=== PATIENT | female | born 1995 ===

== ENCOUNTER 2018-05-15 06:40 | Emergency (ER) | payer OTHER ==
[2018-05-15 07:23] VITALS: BP 119/77; PULSE 58; RESP 16; TEMP 98.3; O2SAT 99
--- NOTE | 2018-05-15 08:12 | ED PDOC ---
HPI: Female Pain Time Seen by Provider: 05/15/18 08:00 Chief Complaint (Nursing): Female Genitourinary Chief Complaint (Provider): Female Genitourinary History Per: Patient History/Exam Limitations: no limitations Onset/Duration Of Symptoms: Days (1) Associated Symptoms: Urinary Symptoms (Dysuria, hematuria and frequency). denies: Fever, Chills, Nausea, Vomiting, Back Pain Additional Complaint(s): 23 years old female presents to the ED for evaluation of dysuria, hematuria and frequency of urination associated with lower abdominal pain onset yesterday. Patient denies any fever, back pain, chills, nausea or vomiting. PMD: Cannot recall name Past Medical History Reviewed: Historical Data, Nursing Documentation, Vital Signs Vital Signs: Last Vital Signs Temp 98.3 F 05/15/18 07:22 Pulse 58 L 05/15/18 07:22 Resp 16 05/15/18 07:22 BP 119/77 05/15/18 07:22 Pulse Ox 99 05/15/18 07:22 - Medical History PMH: No Chronic Diseases - Surgical History Surgical History: No Surg Hx - Family History Family History: States: Unknown Family Hx - Home Medications Home Medications: Ambulatory Orders Medication Instructions Recorded Naproxen [Naprosyn] 500 mg PO Q12H #20 tab 05/15/18 Sulfamethoxazole/Trimethoprim 1 tab PO BID #20 tab 05/15/18 [Bactrim DS 800 mg-160 mg] - Allergies Allergies/Adverse Reactions: Allergies Allergy/AdvReac Type Severity Reaction Status Date / Time No Known Allergies Allergy Verified 05/15/18 07:22 Review of Systems ROS Statement: Except As Marked, All Systems Reviewed And Found Negative Constitutional: Negative for: Fever, Chills Gastrointestinal: Positive for: Abdominal Pain (lower). Negative for: Nausea, Vomiting Genitourinary Female: Positive for: Dysuria, Frequency, Hematuria Musculoskeletal: Negative for: Back Pain Physical Exam - Reviewed Nursing Documentation Reviewed: Yes Vital Signs Reviewed: Yes - Physical Exam Appears: Positive for: Non-toxic, No Acute Distress Head Exam: Positive for: ATRAUMATIC, NORMOCEPHALIC Gastrointestinal/Abdominal: Positive for: Soft, Tenderness (mild to lower abdomen bilaterally) Back: Positive for: Normal Inspection. Negative for: L CVA Tenderness, R CVA Tenderness Extremity: Positive for: Normal ROM. Negative for: Tenderness Neurologic/Psych: Positive for: Alert, Oriented (x3) - ECG O2 Sat by Pulse Oximetry: 99 (RA) Pulse Ox Interpretation: Normal Medical Decision Making Medical Decision Making: Time: 804 Initial Plan: --Urine --Urine dipstick --Transvaginal US 0940 Tansvaginal US FINDINGS: UTERUS: Measures 8 x 3 x 5.1 cm. Normal in size and appearance. No fibroid or other mass lesion seen. ENDOMETRIUM: Measures 12 mm in diameter. No focal endometrial complex mass is noted. CERVIX: No cervical abnormality identified. RIGHT OVARY: Measures 3.5 x 2.2 x 3.1 cm. No solid mass. Normal flow. A few small follicles are seen. LEFT OVARY: Measures 2.5 x 1.7 x 2.5 cm. No solid mass. Normal flow. A few small follicles are seen. FREE FLUID: Mild right adnexal free fluid is seen adjacent to the right ovary. This is nonspecific but may reflect recently ruptured follicular cyst. OTHER FINDINGS: None. IMPRESSION: Small amount of free fluid in the right adnexa adjacent to the right ovary which may reflect recently ruptured ovarian follicle. No appreciable endometrial complex mass or cervical mass. ----- Scribe Attestation: Documented by Deanne Starkey, acting as a scribe for Vidal Bryant MD. Provider Scribe Attestation: All medical record entries made by the Scribe were at my direction and personally dictated by me. I have reviewed the chart and agree that the record accurately reflects my personal performance of the history, physical exam, medical decision making, and the department course for this patient. I have also personally directed, reviewed, and agree with the discharge instructions and disposition. Disposition - Clinical Impression Clinical Impression: Urinary tract infection - Patient ED Disposition Is Patient to be Admitted: No Counseled Patient/Family Regarding: Studies Performed, Diagnosis, Need For Followup, Rx Given - Disposition Referrals: [facility] [Outside] Disposition: Routine/Home Disposition Time: 10:31 Condition: FAIR Prescriptions: Naproxen [Naprosyn] 500 mg PO Q12H #20 tab Sulfamethoxazole/Trimethoprim [Bactrim DS 800 mg-160 mg] 1 tab PO BID #20 tab Instructions: Urinary Tract Infections in Adults Forms: [facility] ([place])
--- NOTE | 2018-05-15 09:42 | US ---
Date of service: 05/15/2018 HISTORY: LOwer abd pain COMPARISON: None available. TECHNIQUE: Real-time transvaginal ultrasound examination of the pelvis was performed. FINDINGS: UTERUS: Measures 8 x 3 x 5.1 cm. Normal in size and appearance. No fibroid or other mass lesion seen. ENDOMETRIUM: Measures 12 mm in diameter. No focal endometrial complex mass is noted. CERVIX: No cervical abnormality identified. RIGHT OVARY: Measures 3.5 x 2.2 x 3.1 cm. No solid mass. Normal flow. A few small follicles are seen. LEFT OVARY: Measures 2.5 x 1.7 x 2.5 cm. No solid mass. Normal flow. A few small follicles are seen. FREE FLUID: Mild right adnexal free fluid is seen adjacent to the right ovary. This is nonspecific but may reflect recently ruptured follicular cyst. OTHER FINDINGS: None. IMPRESSION: Small amount of free fluid in the right adnexa adjacent to the right ovary which may reflect recently ruptured ovarian follicle. No appreciable endometrial complex mass or cervical mass.
== END 2018-05-15 10:53 | disposition home or self-care (01) ==
LOC: H.ER 06:40
DX: N39.0 Urinary tract infection, site not specified (principal)